=== PATIENT | male | born 1960 | race Two or more races ===

== ENCOUNTER 2016-07-18 12:34 | Emergency (ER) | payer OTHER ==
[~2016-07-18] VITALS: Ht 180.3 cm; Wt 77.1 kg
--- NOTE | 2016-07-18 12:40 | NUR ---
Pt bbra from home cc "bugs crawling on skin" no bugs noted. Non complaint of home meds. Pt denies drug used. Per staff at [facility] pt took meth and cocaine. Awaiting md order. Placed on monitor. VSS
--- NOTE | 2016-07-18 13:00 | NUR ---
AT BEDSIDE FOR EVAL
[2016-07-18 13:47] VITALS: BP 150/75
--- NOTE | 2016-07-18 13:47 | NUR ---
Patient discharged to home in stable condition. Written and verbal after care instructions given. Patient verbalizes understanding of instruction.
== END 2016-07-18 13:49 | disposition home or self-care (01) ==
LOC: ER 12:36
DX: F22 Delusional disorders (principal); F15.10 Other stimulant abuse, uncomplicated; F20.9 Schizophrenia, unspecified; B35.1 Tinea unguium; I10 Essential (primary) hypertension; F31.9 Bipolar disorder, unspecified; F32.9 Major depressive disorder, single episode, unspecified
CPT/HCPCS: 99283; A4606; Z7610